=== PATIENT | male | born 1980 | race African-American/Black ===

== ENCOUNTER 2017-10-04 17:06 | Emergency (ER) | payer MEDICAID, OTHER ==
--- NOTE | 2017-10-04 18:08 | RADIOLOGY REPORT (SQ) ---
EXAM DESCRIPTION: ANKLE LEFT COMPLETE COMPLETED DATE/TIME: 10/04/2017 5:59 pm REASON FOR STUDY: rolled his ankle, pain and swelling COMPARISON: None. NUMBER OF VIEWS: Three views. TECHNIQUE: AP, lateral, and oblique radiographic images acquired of the left ankle. LIMITATIONS: None. FINDINGS: MINERALIZATION: Normal. BONES: No acute fracture or dislocation. No worrisome bone lesions. JOINTS: No effusions. SOFT TISSUES: Circumferential soft tissue edema. OTHER: No other significant finding. IMPRESSION: Circumferential soft tissue edema without underlying osseous injury. TECHNICAL DOCUMENTATION: JOB ID: [id number] [employer]- All Rights Reserved Reading location - IP/workstation name: [email or web address]
[2017-10-04] MEDS ORDERED: OXYCODONE HCL IR 5 MG TABLET PO ONE (18:13)
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
--- NOTE | 2017-10-04 19:20 | RADIOLOGY REPORT (SQ) ---
EXAM DESCRIPTION: FOOT LEFT COMPLETE COMPLETED DATE/TIME: 10/04/2017 6:58 pm REASON FOR STUDY: left foot pain COMPARISON: None. NUMBER OF VIEWS: Three views. TECHNIQUE: AP, lateral and oblique radiographic images acquired of the left foot. LIMITATIONS: None. FINDINGS: MINERALIZATION: Osteopenia. BONES: No acute fracture or dislocation. No worrisome bone lesions. JOINTS: No effusions. SOFT TISSUES: Circumferential soft tissue edema. OTHER: No other significant finding. IMPRESSION: Circumferential soft tissue edema without underlying osseous injury. TECHNICAL DOCUMENTATION: JOB ID: [id number]- All Rights Reserved Reading location - IP/workstation name: [email or web address]
[2017-10-04 20:24] VITALS: BP 131/104
== END 2017-10-04 20:26 | disposition home or self-care (01) ==
LOC: ER 17:06
DX: S93.402A Sprain of unspecified ligament of left ankle, initial encounter (principal); M79.672 Pain in left foot; X50.0XXA Overexertion from strenuous movement or load, initial encounter; Y93.89 Activity, other specified
CPT/HCPCS: 99283; 73610; 73630; L1902; J3490

== ENCOUNTER 2018-01-12 02:04 | Emergency (ER) | payer MEDICAID ==
[2018-01-12] MEDS ORDERED: NORMAL SALINE 1000 ML 1,000 ML IV ONE (02:58)
[2018-01-12] MEDS ORDERED: METOCLOPRAMIDE HCL INJ/PF 10 MG/2 ML SDV IV ONE (02:59)
[2018-01-12 03:30] LABS: ABSOLUTE EOSINOPHILS # (AUTO) 0.1 10^3/uL (0.0-0.6); ABSOLUTE NEUT (AUTO) 5.8 10^3/uL (1.7-8.2); BASOPHILS % (AUTO) 0.5 % (0-2); EOSINOPHILS % (AUTO) 1.2 % (0-6); HEMATOCRIT 44.9 % (37.9-51.0); LYMPHOCYTES % (AUTO) 22.2 % (13-45); MEAN CORPUSCULAR HEMOGLOBIN 33.1 pg (27.0-33.4); MEAN CORPUSCULAR HGB CONC 35.6 g/dL (32.0-36.0); MEAN CORPUSCULAR VOLUME 93 fl (80-97); MONOCYTES % (AUTO) 11.2 % (3-13); PLATELET COUNT 129 10^3/uL (150-450); RED BLOOD COUNT 4.82 10^6/uL (4.35-5.55); SEGMENTED NEUTROPHILS % (AUTO) 64.9 % (42-78); TOTAL CELLS COUNTED % (AUTO) 100 %
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
[2018-01-12] MEDS ORDERED: DICYCLOMINE HCL INJ 20 MG/2 ML AMPULE IM ONE (03:59)
[2018-01-12] MEDS ORDERED: PANTOPRAZOLE SODIUM 40 MG VIAL IV ONE (03:59)
[2018-01-12 04:32] LABS: ALANINE AMINOTRANSFERASE 41 U/L (21-72); ALBUMIN 3.8 g/dL (3.5-5.0); ALKALINE PHOSPHATASE 62 U/L (38-126); ANION GAP 13 (5-19); ASPARTATE AMINO TRANSFERASE 53 U/L (17-59); BILIRUBIN,DIRECT 0.8 mg/dL (0.0-0.4); BILIRUBIN,TOTAL 2.5 mg/dL (0.2-1.3); BLOOD UREA NITROGEN 5 mg/dL (7-20); CALCIUM 9.1 mg/dL (8.4-10.2); CARBON DIOXIDE 26 mmol/L (22-30); CHLORIDE 107 mmol/L (98-107); GLUCOSE 96 mg/dL (75-110); LIPASE 122.1 U/L (23-300); POTASSIUM 3.3 mmol/L (3.6-5.0); SODIUM 145.7 mmol/L (137-145); TOTAL PROTEIN 7.1 g/dL (6.3-8.2)
[2018-01-12 04:44] LABS: APPEARANCE,URINE CLEAR; BILIRUBIN,URINE SMALL (NEGATIVE); COLOR,URINE AMBER; GLUCOSE, URINE NEGATIVE (NEGATIVE); KETONES,URINE NEGATIVE (NEGATIVE); LEUKOCYTE ESTERASE,URINE TRACE (NEGATIVE); NITRITE,URINE NEGATIVE (NEGATIVE); PROTEIN,URINE 30 mg/dL (NEGATIVE); URINE SPECIFIC GRAVITY 1.024
[2018-01-12] MEDS ORDERED: SUCRALFATE 1 GM TABLET PO ONE (05:08)
--- NOTE | 2018-01-12 10:47 | RADIOLOGY REPORT (SQ) ---
EXAM DESCRIPTION: CT ABD/PELVIS WITH IV ORAL COMPLETED DATE/TIME: 01/12/2018 10:19 am REASON FOR STUDY: abd pain, N/V/D, multiple abd surgeries COMPARISON: 06/13/2012 TECHNIQUE: CT scan of the abdomen and pelvis performed using helical scanning technique with dynamic intravenous contrast injection. Oral contrast. Images reviewed with lung, soft tissue, and bone win dows. Reconstructed coronal and sagittal MPR images reviewed. Delayed images for evaluation of the ur inary system also acquired. All images stored on PACS. All CT scanners at this facility use dose modulation, iterative reconstruction, and/or weight based d osing when appropriate to reduce radiation dose to as low as reasonably achievable (ALARA). [facility]: Dose Right [facility]: CareDose [facility]: Dose Right [facility]: Teradose 4D [facility]: Yoyo CONTRAST TYPE AND DOSE: contrast/concentration: Isovue 370.00 mg/ml; Total Contrast Delivered: 100.0 ml; Total Saline Delivered: 54.3 ml RENAL FUNCTION: BUN 5 creatinine 0.76 RADIATION DOSE: CT Rad equipment meets quality standard of care and radiation dose reduction techniq ues were employed. CTDIvol: 20.9 - 21.1 mGy. DLP: 2552 mGy-cm.. LIMITATIONS: None. FINDINGS: LOWER CHEST: Small left pleural effusion with mild subsegmental atelectasis in the lung ba ses. Esophageal varices. LIVER: There is a small hepatic cyst seen on image 14 series 5. SPLEEN: Splenomegaly. PANCREAS: No masses. No significant calcifications. No adjacent inflammation or peripancreatic fluid collections. Pancreatic duct not dilated. GALLBLADDER: No identified stones by CT criteria. No inflammatory changes to suggest cholecystitis. ADRENAL GLANDS: No significant masses or asymmetry. RIGHT KIDNEY AND URETER: No solid masses. No significant calcifications. No hydronephrosis or hyd roureter. LEFT KIDNEY AND URETER: No solid masses. No significant calcifications. No hydronephrosis or hydr oureter. AORTA AND VESSELS: No aneurysm. No dissection. Renal arteries, SMA, celiac without stenosis. RETROPERITONEUM: No retroperitoneal adenopathy, hemorrhage or masses. BOWEL AND PERITONEAL CAVITY: There appears to been a right hemicolectomy. APPENDIX: Surgically absent. PELVIS: No mass. No free fluid. Normal bladder. ABDOMINAL WALL: There is a 2 cm wide ventral hernia seen on image 39 series 3. This contains only fa t. A 2nd, smaller ventral hernia is seen inferior to the 1st an likewise contains only fat. BONES: No significant or acute findings. OTHER: Upper abdominal varices. IMPRESSION: 1. Splenomegaly with upper abdominal and esophageal varices suggesting portal hypertens ion. 2. There are 2 small ventral hernias just to the left of the midline containing only fat. TECHNICAL DOCUMENTATION: JOB ID: [id number] Quality ID # [id number]: Final reports with documentation of one or more dose reduction techniques (e.g., Au tomated exposure control, adjustment of the mA and/or kV according to patient size, use of iterative reconstruction technique) 2010 [employer]- All Rights Reserved Reading location - IP/workstation name: [email or web address]
--- NOTE | 2018-01-12 10:55 | ER Document Report ---
Doctor's Note Notes: 01/12/18 10:52 Patient care was turned over to me about 6:30 AM this morning. At that time the patient was pending a double contrast a CT scan of the abdomen and pelvis. His original presentation was for nausea vomiting, pain in the abdomen, headache and diarrhea since 01/11/2018. He was receiving IV maintenance fluids. CT scan shows splenomegaly with upper abdominal esophageal varices suggesting portal hypertension. This is not a new finding. There were 2 small ventral hernias just to the left of the midline containing fat. There are no acute findings noted. At this time the patient complains of a headache which is found to be a muscle tension type headache with extreme tenderness to palpation of the posterior cervical muscles and the temporal scalp muscles. He does complain of abdominal pain, however on exam this is actually the lower sternum and xiphoid process that are quite tender to palpate. The abdomen does not seem tender to palpate including the epigastrium below the xiphoid process. He is morbidly obese. He does state that his nauseousness remains however he has not vomited in the past 7-8 hours, since he got Reglan about 3 AM. The patient repeatedly asks for something for his headache. We will try Benadryl and Compazine. I would prefer to avoid narcotics, and NSAIDs cannot be used due to his history of esophageal varices and bleeding. 01/12/18 13:00 At this time the patient has been sleeping. He states his headache is much better. He has not had any vomiting or diarrhea in several hours. He states his nauseousness at this time is much better. He is agreeable to being discharged home with medication for his nausea and his tension headache.
[2018-01-12] MEDS ORDERED: DIPHENHYDRAMINE HCL 50 MG/ML VIAL IV ONE (11:07)
[2018-01-12] MEDS ORDERED: PROCHLORPERAZINE EDISYLATE INJ 10 MG/2 ML VIAL IV ONE (11:08)
[2018-01-12 13:49] VITALS: BP 121/76
== END 2018-01-12 13:49 | disposition home or self-care (01) ==
LOC: ER 02:04
DX: G44.209 Tension-type headache, unspecified, not intractable (principal); R10.9 Unspecified abdominal pain; R19.7 Diarrhea, unspecified; R11.2 Nausea with vomiting, unspecified
CPT/HCPCS: 99284; 96372; 96361; 96374; 96375; 36415; 83690; 85025; 80053; 81001; 74177; J0500; J1200; J2765; S0164; J0780; J3490; J7030